=== PATIENT | male | born 1955 | race Caucasian/White ===

== ENCOUNTER → 2017-06-30 | Outpatient (CLI) | payer BC ==
--- NOTE | 2017-07-01 08:52 | MRI ---
EXAM DESCRIPTION: Knee,Left: MRI. CLINICAL HISTORY: KNEE PAIN COMPARISON: MRI left knee 01/21/2013. TECHNIQUE: Multiplanar, high-field MRI, multiple sequences, without contrast: Left knee. Area technically difficult study due to heart size of the body part. FINDINGS: Intermediate signal in the anterior and posterior horn of the medial meniscus. Fluid signal abutting the central root attachment of the posterior horn. Lateral subluxation of the anterior horn from the joint space.. Minimal fluid signal in the body of the meniscus. Moderate chondromalacia medial compartment. Normal signal in the lateral meniscus. Lateral cartilage and subchondral bone are unremarkable. Minimal effusion around the outer lateral meniscus and the lateral collateral ligament complex. Minimal intra-cruciate space effusion. Fluid in the posterior intracondylar notch of the femur. Normal signal in the anterior and posterior cruciate ligaments. Iliotibial band is unremarkable. Minimal edema in the posterior soft tissues. Medial collateral ligament and elements of the lateral collateral ligament complex are unremarkable. Large suprapatellar effusion more laterally than medially with superior patellar plica. Fluid collection anterior to the patella. Laxity of the patellar tendon. Intermediate signal in the distal quadriceps tendon. Medial and lateral patellar soft tissue restraints are intact. No significant osteochondral abnormalities in the patellofemoral joint. Multiple anterior and posterior dilated venous structures. IMPRESSION: 1. Degeneration posterior horn and body medial meniscus. Medial joint effusion and moderate chondromalacia but no subchondral edema. No definite meniscal tear. 2. Large effusion medial lateral compartment and large suprapatellar effusion. Intra-cruciate space effusion. No significant ligament sprains or tears. 3. Degeneration of the quadriceps tendon and laxity of the patellar tendon. No tears or strains. 4. Multiple venous varicosities anterior and posterior and prepatellar bursitis. Diffuse subcutaneous edema anterior to the patellar tendon and anterior to the proximal tibia. Electronically signed by: Ciro Dias MD 07/01/2017 8:51 AM CDT
== END | disposition home or self-care (01) ==
LOC: MRI 10:10
PROVIDERS: ATTEND Family Medicine
DX: S83.242A Other tear of medial meniscus, current injury, left knee, initial encounter (principal); M25.462 Effusion, left knee

== ENCOUNTER → 2017-09-21 | Outpatient (CLI) | payer BC | LOC: GMAE 12:13 | PROVIDERS: ATTEND Family Medicine | DX: I10 Essential (primary) hypertension (principal); Z12.5 Encounter for screening for malignant neoplasm of prostate ==

== ENCOUNTER → 2019-02-07 | Outpatient (CLI) | payer BC | END | disposition home or self-care (01) | LOC: GMAE 10:41 | PROVIDERS: ATTEND Family Medicine | DX: Z00.00 Encounter for general adult medical examination without abnormal findings (principal) ==

== ENCOUNTER 2019-12-15 16:19 | Observation (INO) | payer BC ==
[2019-12-15] MEDS ORDERED: SODIUM CHLORIDE 0.9% (FLUSH) 10 ML SYG IV PRN ×2 (16:39→19:57)
--- NOTE | 2019-12-15 17:21 | RAD ---
EXAM DESCRIPTION: Chest,1 View CLINICAL HISTORY: left sided numbness x 2wks. COMPARISON: Chest radiograph dated June 02, 2015 TECHNIQUE: Frontal view radiograph of the chest FINDINGS: Lung volumes are shallow with associated bronchovascular crowding. Cardiac silhouette shows normal heart size. Pulmonary vascularity is within normal limits. Linear opacities in the bilateral lower lung zones most compatible with atelectasis. Underlying infiltrate cannot be entirely excluded. No pleural effusion. No pneumothorax. No acute osseous abnormality. IMPRESSION: 1. Shallow lung volumes with associated bronchovascular crowding. 2. Linear opacities bilateral lower lung zones most compatible with atelectasis. Underlying infiltrate cannot be entirely excluded. Electronically signed by: Endy Horowitz MD 12/15/2019 5:19 PM CDT
--- NOTE | 2019-12-15 17:27 | CT ---
CT HEAD WITHOUT IV CONTRAST HISTORY: Left sided numbness x 2wks.. COMPARISON: None. TECHNIQUE: CT scan of the brain was performed without IV contrast. This exam was performed according to our departmental dose-optimization program, which includes automated exposure control, adjustment of the mA and/or kV according to patient size and/or use of iterative reconstruction technique. FINDINGS: The ventricles, cisterns, and sulci are age-appropriate. No evidence of acute infarction, intracranial hemorrhage, extra-axial fluid collection, or midline shift. No air-fluid levels are seen in the paranasal sinuses to suggest acute sinusitis. No depressed skull fracture. IMPRESSION: No acute intracranial findings. Electronically signed by: Jamey Cheek MD 12/15/2019 5:25 PM CDT
--- NOTE | 2019-12-15 17:35 | ED.PDOC ---
History of Present Illness - General Chief Complaint: Neuro Symptoms/Deficits Stated Complaint: left sided numbness Time Seen by Provider: 12/15/19 16:38 Source: patient, RN notes reviewed, Vital Signs reviewed Exam Limitations: no limitations - History of Present Illness Initial Comments: Patient is a 64-year-old white male who is morbidly obese who presents with complaints of 2 weeks of left-sided numbness. Patient complains of his left arm and left leg and left side of his body being numb. Patient states that he thought it was related to his blood pressure and would get better. Nothing improves or worsens the numbness. It is constant. There is no radiation of numbness or pain. Timing/Duration: other - 2 weeks Severity: moderate Improving Factors: nothing Worsening Factors: nothing Associated Symptoms: other - left sided numbness. Allergies/Adverse Reactions: Allergies Ibuprofen Allergy (Unknown, Verified 12/10/14 17:39) Rash Home Medications: Ambulatory Orders Docusate Sodium [Colace Cap] 100 mg PO DAILY 05/25/14 Canagliflozin [Invokana] 100 mg PO DAILY 12/10/14 Metoprolol Tartrate 50 mg PO BID 12/10/14 Pantoprazole Sodium 40 mg PO DAILY 12/10/14 Spironolactone 25 mg PO DAILY 12/10/14 Tamsulosin [Flomax] 0.4 mg PO DAILY 12/10/14 Warfarin Sodium [Coumadin] 5 mg PO MARIUSZ-OTH-DAY 12/10/14 Warfarin Sodium [Coumadin] 10 mg PO MARIUSZ-OTH-DAY 12/10/14 l-Methylfolate W/ Vitamin B6-V [Folbic Rf] 1 tab PO DAILY 12/10/14 Dbnouqgcalbfn-Awoh-Fiwffpqeuj [Fioricet] 1 ea PO Q8H PRN #21 tab 05/21/15 Dexlansoprazole [Dexilant] 60 mg PO DAILY 06/02/15 Sucralfate Tab [Carafate Tab] 1 gm PO QID 06/02/15 Review of Systems - Review of Systems Constitutional: States: no symptoms reported, see HPI. Denies: chills, fever, malaise, weakness EENTM: States: no symptoms reported. Denies: eye pain, blurred vision, double vision Respiratory: States: no symptoms reported. Denies: cough, short of breath, stridor, wheezing Cardiology: States: no symptoms reported. Denies: chest pain, palpitations, syncope Gastrointestinal/Abdominal: States: no symptoms reported. Denies: abdominal pain, diarrhea, nausea, vomiting Genitourinary: States: no symptoms reported. Denies: dysuria, frequency Musculoskeletal: States: no symptoms reported. Denies: back pain, neck pain Skin: States: no symptoms reported. Denies: change in color, rash Neurological: States: see HPI, numbness, paresthesia. Denies: weakness Endocrine: States: no symptoms reported Hematologic/Lymphatic: States: no symptoms reported. Denies: blood clots, easy bleeding All other Systems: No Change from Baseline Past Medical History (General) - Patient Medical History Hx Seizures: No Hx Stroke: No Hx Asthma: No Hx of COPD: No Hx Cardiac Disorders: Yes Hx Congestive Heart Failure: Yes Hx Pacemaker: No Hx Hypertension: Yes Hx Diabetes: Yes Hx Gastroesophageal Reflux: Yes Hx MRSA: No - Vaccination History Hx Tetanus, Diphtheria Vaccination: Yes Hx Influenza Vaccination: Yes Hx Pneumococcal Vaccination: Yes - Social History Hx Tobacco Use: No Hx Chewing Tobacco Use: No Hx Alcohol Use: Yes Hx Substance Use: No Hx Physical Abuse: No Hx Emotional Abuse: No - Female History Patient : No Family Medical History - Family History Father Living Status: Cause of : CANCER Hx Family Diabetes: Yes Hx Family Cancer: Yes Physical Exam - Physical Exam General Appearance: Alert, Anxious, Obese, Well Developed, Well Groomed, Well Hydrated, Well Nourished Eye Exam: bilateral normal Ears, Nose, Throat: hearing grossly normal, normal ENT inspection, normal pharynx Neck: non-tender, full range of motion, supple Respiratory: chest non-tender, lungs clear, normal breath sounds, no respiratory distress, no accessory muscle use Cardiovascular/Chest: normal peripheral pulses, no edema, no gallop, no JVD, no murmur, tachycardia Peripheral Pulses: radial,right: 2+, radial,left: 2+ Gastrointestinal/Abdominal: normal bowel sounds, non tender, soft, no organomegaly Back Exam: normal inspection, no CVA tenderness, no vertebral tenderness Extremity: normal range of motion, normal inspection, no pedal edema, no calf tenderness, other - LLE swelling and open weeping sores. Pitting edema bilaterally. Neurologic: canvas baster jumpbasting II-XII nml as tested, alert, normal mood/affect, oriented x 3, other - left arm/leg numbness Skin Exam: warm/dry, other - thor LE bilaterally. Lymphatic: no adenopathy Progress - Progress Progress: Differential diagnosis: CVA, TIA, cervical radiculopathy, cellulitis of lower extremity among others. 12/15/19 19:03 Patient presents with complaints of left-sided numbness x2 weeks. I suspect a CVA. CT is negative. Patient has a markedly enlarged left leg. Patient states that he previously had a DVT with PE but he is having no pain in that leg at this time. He states this is the way his leg normally is now. Patient does have some weeping open sores on the lower extremity so concern for cellulitis. There is no white count nor left shift so I do not believe this leg has a deep space infection. Patient is resting comfortably and the remainder of his labs are relatively unremarkable. Plan on admission to the hospital for MRI of the head and ultrasound of the carotid arteries. I discussed this plan of care with the patient he voices understanding and agreement. 12/15/19 19:21 Patient accepted by Randal Garcia NP, for admission. Sheng Santizo M.D. #[id number] - Results/Orders Results/Orders: 12/15/19 16:39 Sodium Chloride 0.9% (Flush) [Saline Flush Syringe] 10 ml IV PRN PRN 12/15/19 16:40 Telemetry .ONCE 12/15/19 16:45 EKG STAT Laboratory Results - last 24 hr 12/15/19 12/15/19 12/15/19 16:45 17:10 17:10 WBC 4.2 L RBC 4.22 L Hgb 13.0 L Hct 37.7 L MCV 89.4 MCH 30.8 MCHC 34.5 RDW 14.5 Plt Count 149 MPV 9.5 Absolute Neuts (auto) 2.90 Absolute Lymphs (auto) 0.80 L Absolute Monos (auto) 0.40 Absolute Eos (auto) 0.10 Absolute Basos (auto) 0.00 Neutrophils % 68.8 Lymphocytes % 19.9 L Monocytes % 8.4 Eosinophils % 2.3 Basophils % 0.6 PT INR PTT (SP) Sodium 138 Potassium 3.4 L Chloride 104 Carbon Dioxide 25 Anion Gap 12.4 BUN 14 Creatinine 0.76 BUN/Creatinine Ratio 18.4 POC Glucose 257 H Random Glucose 270 H Serum Osmolality 285.7 Calcium 8.6 Total Bilirubin 0.7 AST 26 ALT 28 Alkaline Phosphatase 47 Creatine Kinase 175 H CK-MB (CK-2) 3.9 CK-MB (CK-2) % 2.23 Troponin I 0.02 Serum Total Protein 7.5 Albumin 4.0 Globulin 3.5 Albumin/Globulin Ratio 1.1 12/15/19 17:10 WBC RBC Hgb Hct MCV MCH MCHC RDW Plt Count MPV Absolute Neuts (auto) Absolute Lymphs (auto) Absolute Monos (auto) Absolute Eos (auto) Absolute Basos (auto) Neutrophils % Lymphocytes % Monocytes % Eosinophils % Basophils % PT 19.5 H INR 1.97 H PTT (SP) 31.8 H Sodium Potassium Chloride Carbon Dioxide Anion Gap BUN Creatinine BUN/Creatinine Ratio POC Glucose Random Glucose Serum Osmolality Calcium Total Bilirubin AST ALT Alkaline Phosphatase Creatine Kinase CK-MB (CK-2) CK-MB (CK-2) % Troponin I Serum Total Protein Albumin Globulin Albumin/Globulin Ratio EXAM DESCRIPTION: Chest,1 View CLINICAL HISTORY: left sided numbness x 2wks. COMPARISON: Chest radiograph dated June 02, 2015 TECHNIQUE: Frontal view ra diograph of the chest FINDINGS: Lung volumes are shallow with associated bronchovascular crowding. Cardiac silhouette shows normal heart size. Pulmonary vascularity is within normal limits. Linear opacities in the bilateral lower lung zones most compatible with atelectasis. Underlying infiltrate cannot be entirely excluded. No pleural effusion. No pneumothorax. No acute osseous abnormality. IMPRESSION: 1. Shallow lung volumes with associated bronchovascular crowding. 2. Linear opacities bilateral lower lung zones most compatible with atelectasis. Underlying infiltrate cannot be entirely excluded. Electronically signed by: Endy Horowitz MD 12/15/2019 5:[address] HEAD WITHOUT IV CONTRAST HISTORY: Left sided numbness x 2wks.. COMPARISON: None. TECHNIQUE: CT scan of the brain was performed without IV contrast. This exam was performed according to our departmental dose-optimization program, which includes automated exposure control, adjustment of the mA and/or kV according to patient size and/or use of iterative reconstruction technique. FINDINGS: The ventricles, cisterns, and sulci are age-appropriate. No evidence of acute infarction, intracranial hemorrhage, extra-axial fluid collection, or midline shift. No air-fluid levels are seen in the paranasal sinuses to suggest acute sinusitis. No depressed skull fracture. IMPRESSION: No acute intracranial findings. Electronically signed by: Jamey Cheek MD 12/15/2019 5:25 PM CDT EKG performed 15 December 2019 at 1643 hrs.: Sinus rhythm at 81 bpm, left axis deviation, poor R wave progression, possible anterior infarct, age inde terminate, abnormal EKG. Vital Signs 12/15/19 16:30 Temperature 97.6 F Pulse Rate [ 105 H left brachial] Respiratory 20 Rate Blood Pressure 169/95 [left brachial] O2 Sat by Pulse 96 Oximetry Departure - Departure Clinical Impression: Cellulitis of leg without foot, left CVA (cerebral vascular accident) Qualifiers: CVA mechanism: unspecified Qualified Code(s): I63.9 - Cerebral infarction, unspecified Time of Disposition: 19:23 Disposition: Admit Patient Condition: Fair Departure Forms: ED Discharge - Pt. Copy, Patient Portal Self Enrollment Diet: resume usual diet Activity: increase activity as tolerated Referrals: Law Rankin MD [Primary Care Provider] - 1-2 Weeks Home Medications: Ambulatory Orders Docusate Sodium [Colace Cap] 100 mg PO DAILY 05/25/14 Canagliflozin [Invokana] 100 mg PO DAILY 12/10/14 Metoprolol Tartrate 50 mg PO BID 12/10/14 Pantoprazole Sodium 40 mg PO DAILY 12/10/14 Spironolactone 25 mg PO DAILY 12/10/14 Tamsulosin [Flomax] 0.4 mg PO DAILY 12/10/14 Warfarin Sodium [Coumadin] 5 mg PO MARIUSZ-OTH-DAY 12/10/14 Warfarin Sodium [Coumadin] 10 mg PO MARIUSZ-OTH-DAY 12/10/14 l-Methylfolate W/ Vitamin B6-V [Folbic Rf] 1 tab PO DAILY 12/10/14 Igowtrhovrfyy-Xqtj-Erlvvkrxwk [Fioricet] 1 ea PO Q8H PRN #21 tab 05/21/15 Dexlansoprazole [Dexilant] 60 mg PO DAILY 06/02/15 Sucralfate Tab [Carafate Tab] 1 gm PO QID 06/02/15 Decision To Admit - Decistion To Admit Decision to Admit Date: 12/15/19 Decision to Admit Time: 18:45
[2019-12-15] MEDS ORDERED: VANCOMYCIN HCL INJ 1,000 MG VIAL IVPB ONE (19:20)
[2019-12-15] MEDS: VANCOMYCIN HCL INJ 1,700 MG in SODIUM CHLORIDE 0.9% 500ML 500 ML IVPB SCH (19:21)
[2019-12-15] MEDS ORDERED: HYDROcodone 5MG/APAP 325MG 1 EA TAB PO PRN (19:57)
[2019-12-15] MEDS ORDERED: ACETAMINOPHEN 325 MG TAB PO PRN (19:57)
[2019-12-15] MEDS ORDERED: ONDANSETRON INJ 4 MG/2 ML VIAL IV PRN (19:57)
[2019-12-15] MEDS ORDERED: GLUCAGON INJ 1 MG VIAL SUBCU PRN (19:57)
[2019-12-15] MEDS ORDERED: DEXTROSE 50% 25 GM/50 ML SYG IV PRN (19:57)
[2019-12-15] MEDS ORDERED: IV SET AND CAP CHANGE INJ INJ SCH (20:00)
[2019-12-15] MEDS ORDERED: cefTRIAXone SODIUM 1 GM in SODIUM CHL 0.9% 50ML MIN-BAG+ 50 ML IVPB SCH (20:30)
[2019-12-15] MEDS ORDERED: cefTRIAXone SODIUM 1 GM VIAL ONE (21:47)
[2019-12-15] MEDS ORDERED: SODIUM CHL 0.9% 50ML MIN-BAG+ 50 ML IVPB ONE (21:47)
[2019-12-15] MEDS: INSULIN LISPRO 100 UNITS/ML PEN SUBCU SCH (22:17)
[2019-12-16] MEDS: INSULIN LISPRO 100 UNITS/ML PEN SUBCU SCH ×3 (07:37→16:45)
[2019-12-16] MEDS: VANCOMYCIN HCL INJ 1,700 MG in SODIUM CHLORIDE 0.9% 500ML 500 ML IVPB SCH (07:38)
[2019-12-16] MEDS ORDERED: PANTOPRAZOLE SODIUM TAB 40 MG PO SCH (09:00)
[2019-12-16] MEDS ORDERED: SPIRONOLACTONE 25 MG TAB PO SCH (09:00)
[2019-12-16] MEDS ORDERED: TAMSULOSIN 0.4 MG CAP PO SCH (09:00)
[2019-12-16] MEDS ORDERED: METOPROLOL TARTRATE 50 MG TAB PO SCH (09:00)
--- NOTE | 2019-12-16 10:53 | MRI ---
EXAM DESCRIPTION: Brain w/o Contrast: MRI. CLINICAL HISTORY: possible remote CVA; Left side numbness COMPARISON: MRI scan of the brain without and with gadolinium IV contrast May 2012 TECHNIQUE: Multiplanar, high-field MRI unit, multiple diffusion sequences, multiple conventional sequences without contrast. FINDINGS: Multiple foci of hyperintense subcortical FLAIR and T2-weighted signal in the inferior right frontal lobe, also subcortical left frontal lobe and left parietal lobe and subcortical left occipital lobe. The number of lesions has increased since the prior study. No hemorrhage, no cerebral edema, no midline shift.. Normal signal in the bilateral basal ganglia. Small punctate focus of hyperintense FLAIR signal in the left cerebellar hemisphere. No hemorrhage, no cerebral edema, no mass-effect. Normal signal in the brainstem and the left cerebellar hemisphere. Concordance of the diffusion and non-diffusion sequences with no diffusion restriction. Cortical sulci, ventricles, and other CSF spaces, and the subdural spaces are normally configured for patients age. No effacement or displacement. No midline shift. No extra-axial hemorrhage. Normal flow signal void in the major vessels of the [place], and the venous sinuses. IACs are symmetric bilaterally. Normal signal in the bilateral mastoid air cells. No mass effect in the bilateral cerebellopontine angles. Pituitary gland occupies most of the sella. Base of the cerebellar tonsils is just above the foramen magnum. Normal signal in the paranasal sinuses.. The bony calvarium is intact. IMPRESSION: 1. Bilateral punctate foci in the frontoparietal occipital lobes have increased since the prior study in 2012, but no diffusion restriction indicating no significant ischemia, no acute or subacute infarction. Similar findings in the left cerebellar hemisphere. White matter changes most likely related to aging or microvascular disease. 2. No intra-axial hemorrhage, mass effect, or cerebral edema. No extra-axial hemorrhage or abnormal fluid collection. Electronically signed by: Ciro Dias MD 12/16/2019 10:51 AM CDT
[2019-12-16 13:57] VITALS: BP 129/76; TEMP 97.5; O2SAT 96
[2019-12-16] MEDS ORDERED: VANCOMYCIN HCL INJ 1,750 MG in SODIUM CHLORIDE 0.9% 500ML 500 ML IVPB SCH (16:00)
--- NOTE | 2019-12-16 16:17 | US ---
EXAM DESCRIPTION: Carotid Duplex: ULTRASOUND. CLINICAL HISTORY: 64 years Male possible remote CVA; Left side numbness COMPARISON: MRI scan of the brain and Duplex evaluation of the deep venous structures of the lower extremities on this visit. TECHNIQUE: Transcutaneous scanning utilizing corona-scale and Doppler modes to evaluate the bilateral carotid systems and vertebral arteries. Percentage of diameter of stenosis or no stenosis recorded will be based upon NASCET criteria. FINDINGS: Peak systolic/end diastolic velocities (CM-Sec) CCA Right 61/0 Left 80/13. ICA Right proximal 48/7, distal 50/18. Left proximal 41/14, Distal 52/15. Vertebral Right 23/10 Left 36/12. ECA (PS Only) Right 67 left 43. ICA/CCA peak systolic velocity ratio: Right 0.8 Left 0.7 ICA/CCA end diastolic velocity ratio: Right n/a Left 1.2 Vertebral arteries: antegrade flow. Comments: None. IMPRESSION: 1. Doppler evaluation of the bilateral carotid systems and vertebral arteries shows no hemodynamically significant stenoses (less than 70%). 2. No significant amount of plaque in the carotid arteries bilaterally. Bilateral vertebral arteries showed antegrade-cephalad flow. Electronically signed by: Ciro Dias MD 12/16/2019 4:15 PM CDT
--- NOTE | 2019-12-16 16:20 | US ---
EXAM DESCRIPTION: Venous,Lower Extremity LT: ULTRASOUND. CLINICAL HISTORY: HX DVT, Bilateral LE edema w/cellulitis COMPARISON: None Available. TECHNIQUE: Martinez-scale and doppler sonographic evaluation of the deep venous system of the left lower extremity. FINDINGS: Doppler evaluation shows normal color flow and normal phasicity and augmentation of the left common femoral vein, left femoral vein, popliteal vein, greater saphenous vein, junction with the CFV. Also normal color flow and normal phasicity and augmentation of the peroneal, and posterior tibial vein. The left lower extremity deep veins were completely compressible; normal occlusion with transducer pressure. Martinez-scale survey showed no echogenic thrombus within these veins. IMPRESSION: 1. Duplex ultrasound evaluation of the left lower extremity deep venous system showing no evidence of thrombosis. Electronically signed by: Ciro Dias MD 12/16/2019 4:18 PM CDT
--- NOTE | 2019-12-17 11:33 | SSS ---
SUPERVISING PHYSICIAN: Hay Deras MD ADMISSION DIAGNOSES: 1. Left-sided upper extremity numbness. 2. Left lower extremity edema cellulitis. 3. 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 4. Pulmonary embolisms in 2005 secondary to above factor deficiency. 5. Type 2 diabetes mellitus, diet controlled. 6. History of hypertension. 7. Hyperlipidemia. DISCHARGE DIAGNOSES: 1. Left-sided upper extremity paresthesia with no evidence of acute CVA, probably related to ongoing chronic cervical radiculopathy, needing to followup as an outpatient. 2. Left lower extremity edema cellulitis. 3. 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 4. Pulmonary embolisms in 2005 secondary to above factors deficiency. 5. Type 2 diabetes mellitus, diet controlled. 6. History of hypertension. 7. Hyperlipidemia. HISTORY OF PRESENT ILLNESS: Mr. Guidry is 54 year-old male patient with a past medical history of Factor V deficiency, type 2 diabetes mellitus, hypertension and pulmonary embolism. He presented to the Emergency Room last night and is also notably morbidly obese, complaining of 2 weeks of left-sided upper extremity numbness. He endorses that the numbness is primarily in his upper extremity and is reproducible, gets worse when he sleeps and he has had some lower extremity numbness but hasn't thought this is a new finding and is more concerned about the numbness in his upper extremity, in fact, he had been to the chiropractor for a manipulation and he sent him to the Emergency Room for evaluation concerning that he might be having an acute CVA. He denied any other symptoms, no chest pains, no shortness of breath. He is also noted to have some lower extremity to his left lower leg with chronic venous stasis ulcers and there is concern for possibly early developing cellulitis. His workup in the Emergency Room included laboratory studies that showed he had a white count of 4,200 without a left shift. Coagulation studies showed he was mildly therapeutic with an INR initially of 1.97 in regards to his Coumadin level and initial chemistries showed he has had a slightly low potassium of 3.4. Otherwise, all electrolytes were normal. Creatinine normal at 0.76, liver functions all within normal limits. BNP was normal at 72. Based on the findings of the lower extremity and the concerns for the upper extremity numbness on the left, he had a CT of the head without contrast which showed no acute intracranial findings. The Emergency Room physician requested workup and the patient be admitted overnight for development of possible left-sided CVA, although his symptoms have been present for 2 weeks with possibly developing left lower extremity cellulitis. He is admitted in observation in stable condition. PAST MEDICAL HISTORY: 1. Allergies. 2. Hyperlipidemia. 3. Hypertension. 4. Pulmonary embolisms diagnosed in 2005. 5. Type 2 diabetes mellitus on diet therapy. 6. Factor V deficiency on Coumadin. PAST SURGICAL HISTORY: No surgeries listed. CURRENT MEDICATIONS: 1. Metoprolol Tartrate 50 mg daily. 2. Spironolactone 25 mg daily. 3. Pantoprazole 40 mg daily. 4. Warfarin 5 mg daily. 5. Flomax 0.4 mg daily. 7. Dexilant 50 mg daily. ALLERGIES: Ibuprofen. FAMILY HISTORY: Father . Mother had history of hypertension, type 2 diabetes mellitus. He had 3 brothers, one from colon cancer. 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 He is , has 2 children. He does smoke, denies significant alcohol usage, denies illicit drug use. REVIEW OF SYSTEMS: CONSTITUTIONAL: Denies general malaise, fevers, chills, weakness. HEENT: Denies headaches. vision changes, sore throat. nasal congestion, earaches. CHEST: Denies shortness of breath, orthopnea, wheezing or coughing. HEART: Denies chest pain, palpitations, tachycardia or syncopal episodes. ABDOMEN: Denies nausea, vomiting, diarrhea or constipation or abdominal pain. GENITOURINARY: Denies dysuria, hematuria or polyuria. MUSCULOSKELETAL: Denies back pain, neck pain, general arthralgias. SKIN: Denies changes, lesions, rashes, moles. He does have a history of chronic venous stasis ulcers to the left lower extremity with ongoing chronic edema. NEUROLOGIC: As noted in operative procedure, reported paresthesias, numbness to the left upper extremity. Denies weakness or other focal motor deficits. 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 Denies unexplained bleeding or transfusion reactions. PHYSICAL EXAMINATION: VITAL SIGNS: Temperature 97.5 at discharge with pulse of 62, blood pressure 129/76, respirations 12, oxygen saturation 92% on room air. Vital signs are showing to be stable during his short hospitalization. Current weight was 149 kg, BMI of 41. GENERAL: The patient is obese but looks to be well hydrated. He looks to be in no distress. He is resting comfortably. HEENT: Tympanic membranes are clear bilaterally. Oropharynx is pink, moist, without any lesions. NECK: Supple, non-tender with, cervical range of motion was somewhat limited but no pain was noted on passive range of motion. CHEST: Lung sounds were clear to auscultation bilaterally without rhonchi, rales, or wheezes. CARDIOVASCULAR: Regular rate and rhythm without appreciable murmurs, rubs, or gallops. ABDOMEN: Obese, soft, non-tender, positive bowel sounds. EXTREMITIES: Left lower leg edema with chronic venous stasis changes, nonpitting edema, right shows to be without any current edema on exam. NEUROLOGIC: Cranial nerves II through XII are grossly intact. Facial features were symmetrical. Extraocular movements within normal limits. There was no notable nystagmus. He does report some left arm numbness but no obvious motor deficits noted. SKIN: Warm, pink and dry except for chronic changes to the left lower extremity as noted above. LABORATORY: White count on discharge 4,800, hemoglobin 12.7, hematocrit 32.2, platelet count 142,000. Differential showed to be without a left shift. Coagulation studies showed a therapeutic INR at 2.4. Chemistries showed a mildly low potassium at 3.5, otherwise electrolytes were within normal limits. His liver functions were all within normal limits. Blood sugars ranged from 190 and 257. Calcium 8.4. BNP normal at 71, troponin 0.02. MICROBIOLOGY: Blood cultures were negative on discharge. RADIOLOGY: He had multiple radiographic imaging studies including a chest x-ray and CT of the head, all without any acute findings. This was followed up with a lower extremity Doppler study of the left lower extremity and per radiology interpretation showed no evidence of a deep thrombus. Please see that report for details. He also had a brain MRI and per radiology interpretation showed bilateral punctate foci in the frontoparietal occipital lobes which increased since prior study of 2012 but no diffuse restriction indicating no significant ischemia, no acute associated infarction. Similar findings are noted in the left cerebral hemisphere, white matter changes likely related to aging or microvascular disease. There is no intra or axial hemorrhage, mass effect or cerebral edema. No extraaxial hemorrhage or abnormal fluid collection. Please see that; report for details. He had carotid Doppler studies as well and per radiology interpretation showed Doppler evaluation of the carotid system bilaterally with vertebral arteries showing no hemodynamically significant stenosis, no significant amount of plaque in the carotid arteries bilaterally. Bilateral vertebral arteries showed antegrade-cephalad flow. EKG showed a sinus rhythm with no ST or T-wave changes to indicate ischemia. Echocardiogram was pending but was unable to be completed on short-stay as the [employer] was out at the time of exam and will need to followed up and completed as an outpatient. ASSESSMENT: As noted above. HOSPITAL COURSE: Mr. Guidry was admitted for a short-stay from the Emergency Room for what looked to be more chronic issues related to the upper exacerbation paresthesia with no acute findings on the workup to indicate acute CVA, more likely related to an ongoing cervical radiculopathy which needs to be followed up as an outpatient. He did have a physical therapy evaluation and that evaluation also indicated he had limited range of motion in the cervical spine, although no actual pain was demonstrated on the exam, his symptoms seemed to be related to the cervical region which the patient endorses that when he works at night, sometimes when he sleeps on his left side. His other workup including the Doppler studies of his legs failed to reveal any DVTs. He did have some mild cellulitis findings which were looking like they were chronic in nature and was treated with vancomycin while he was in the hospital and he needs to transition to oral doxycycline. The patient had no changes on the EKG while he was in the hospital and no further complaints, no chest pains, no shortness of breath and it was felt that he had been clinically stable enough to continue with outpatient management. Certainly, he will need continued followup in regards to the Emergency Room visit as well as the outpatient echocardiogram. I did discuss with him his diabetes as he indicated that is only diet control, that no further workup was done in regard to this. He will need to be followed up as an outpatient closely, again he was found to be stable and can be discharged for continuation of workup as an outpatient. PLAN: Mr. Guidry was discharged after his stay as noted above. I did start him on doxycycline regarding the left lower extremity cellulitis. There are no significant findings of edema. He is scheduled to see Dr. Sin on Thursday following discharge. Review of his medications showed he is in Warfarin as well as a beta shanell but not on any statins or other chronic medications. He will need to be closely followed up, I believe he has not been good at doing primary care followup but acutely for this date there were no acute findings. He was encouraged to follow a diabetic diet, follow blood sugars, keep a log to take with him in his followup appointment. He is to return to the Emergency Department should he have any concerning symptoms. Medications prescribed on discharge include Doxycycline 100 mg q.12 hours for a total of 10 days. All other medications are continued prior to hospitalization. Condition on discharge: Stable and improved. Disposition: Patient is discharged home. #[id number] MTDD
== END 2019-12-16 17:56 | disposition home or self-care (01) ==
LOC: ER 16:19 → MS 19:42
PROVIDERS: ADMIT Nurse Practitioner Family; ATTEND Nurse Practitioner Family
DX: R20.2 Paresthesia of skin (principal); M54.12 Radiculopathy, cervical region; L03.116 Cellulitis of left lower limb; R60.0 Localized edema; D68.2 Hereditary deficiency of other clotting factors; E87.6 Hypokalemia; E11.9 Type 2 diabetes mellitus without complications; I11.0 Hypertensive heart disease with heart failure; E78.5 Hyperlipidemia, unspecified; I65.23 Occlusion and stenosis of bilateral carotid arteries; E66.01 Morbid (severe) obesity due to excess calories; Z68.41 Body mass index [BMI] 40.0-44.9, adult; I87.8 Other specified disorders of veins; I50.9 Heart failure, unspecified; K21.9 Gastro-esophageal reflux disease without esophagitis; Z79.01 Long term (current) use of anticoagulants; Z79.899 Other long term (current) drug therapy; Z86.718 Personal history of other venous thrombosis and embolism; Z86.711 Personal history of pulmonary embolism; Z88.8 Allergy status to other drugs, medicaments and biological substances
CPT/HCPCS: 96366; 96365; 96375; 96376; 96372 ×2; J0696; J7040; J3370 ×2; J1815; J7050; 80048; 82553; 80053; 82948 ×5; 36415 ×4; 85025 ×2; 82550; 87040 ×2; 85730; 85610 ×2; 84484; 83880; 36416 ×5; 71045; 70450; 93880; 93971; 94760 ×2; 97530; 97162; 99285; 70551; 93005; G0378

== ENCOUNTER → 2019-12-26 | Outpatient (CLI) | payer BC | LOC: ECHO 11:03 | PROVIDERS: ATTEND Family Medicine | DX: I51.7 Cardiomegaly (principal); I35.1 Nonrheumatic aortic (valve) insufficiency; I34.0 Nonrheumatic mitral (valve) insufficiency; R06.02 Shortness of breath ==

== ENCOUNTER → 2019-12-28 | Outpatient (CLI) | payer BC ==
--- NOTE | 2019-12-29 11:49 | MRI ---
EXAM DESCRIPTION: Cervical Spine: MRI. CLINICAL HISTORY: 64 years Male LEFT ARM NUMBNESS COMPARISON: Cervical radiographs November 2018. TECHNIQUE: Multiplanar, high-field MRI, multiple sequences, non-contrast Cervical spine. FINDINGS: C2-C3: Moderate reduction of disc space with normal signal in the disc but no bulging. No endplate reactive changes. Possible anomalous vertebra with rudimentary disc space. Minimal hypertrophy left facet joint and minimal narrowing left neural foramen. Canal and right neuroforamen patent. C3-C4: Endplate reactive changes. Desiccation of the posterior disc and mild posterior bulge abutting the cord. Minimal hypertrophy of the left facet. Mild canal narrowing with bilateral neural foramina patent. C4-C5: Disc desiccation posterior broad-based bulge. Left uncinate spur with disc and spur bulge into the left neural foramen. Minimal hypertrophy of the bilateral facet joints. Left neural foraminal stenosis. Minimal right neural foramen narrowing. Mild canal narrowing. C5-C6: Endplate reactive changes and desiccated disc. Right posterior 5 mm disc protrusion and uncinate spur with right neural foraminal stenosis. Left side spondylosis and disc spur complex causing left neural foraminal stenosis. Also hypertrophic changes in the left facet joint. Posterior thickening of the ligaments. Mild central canal stenosis. C6-C7: Disc desiccation and small protrusion to the left of midline, abutting the left C7 nerve. Minimal arthrosis left facet joint. Moderate left neural foraminal narrowing. Left paracentral moderate to severe canal narrowing. Right facet joint unremarkable and neural foramen patent. C7-T1: Disc desiccation and minimal disc space loss. Posterior protrusion in the midline and to the right of midline abutting the cord and the right C8 nerve. Moderate right neural foraminal narrowing and borderline right paracentral canal stenosis. Facet joints are unremarkable. Left neural foraminal stenosis. T1-T2: Left uncinate spur. Moderate to severe narrowing of the neural foramen. Minimal disc desiccation. Mild narrowing of the canal and right neuroforamen is patent. Spinal alignment showing normal cervical lordosis. No cord compression or cord edema. Atlantoaxial joint moderate arthrosis and hypertrophy. Base of the cerebellar tonsils is at the level of the foramen magnum. 1.5 x 1.2 cm hyperintense T2-weighted nodule in the right thyroid lobe margins not well-defined. Remaining Paravertebral soft tissues unremarkable. Vertebral bodies are not compressed at any level. Normal marrow signal in the remaining vertebral bodies and the posterior elements. IMPRESSION: 1. Multifactorial left neural foraminal stenosis at C4-C5. Correlate for left C5 radiculopathy. 2. Right posterior C5-C6 disc protrusion and left side spondylosis resulting in bilateral neural foraminal stenosis and mild central canal stenosis. Correlate for bilateral C6 radiculopathy. 3. Posterior C6-C7 disc protrusion with possible compromise left C7 nerve. 4. Right posterior C7-T1 disc protrusion with possible compromise right C8 nerve. 5. Please refer to FINDINGS for Discussion of results at other disc space levels. Electronically signed by: Ciro Dias MD 12/29/2019 11:47 AM CDT
== END ==
LOC: MRI 07:00
PROVIDERS: ATTEND Family Medicine
DX: M47.892 Other spondylosis, cervical region (principal); M48.02 Spinal stenosis, cervical region; M50.222 Other cervical disc displacement at C5-C6 level; M50.223 Other cervical disc displacement at C6-C7 level; M50.23 Other cervical disc displacement, cervicothoracic region; R20.2 Paresthesia of skin

== ENCOUNTER → 2020-02-21 | Outpatient (CLI) | payer BC | LOC: GMAE 10:39 | PROVIDERS: ATTEND Family Medicine | DX: Z00.00 Encounter for general adult medical examination without abnormal findings (principal) ==